=== PATIENT | female | born 1980 | race Two or more races ===

== ENCOUNTER 2021-04-07 09:30 | Emergency (ER) | payer SELFPAY ==
[~2021-04-07] VITALS: Ht 162.6 cm; Wt 75.7 kg
--- NOTE | 2021-04-07 10:29 | RAD ---
Left fourth finger 3 views. HISTORY: Pain deformity, bruising 3 views were taken of the left fourth finger. There is a small fracture at the proximal end of the di stal phalanx on the dorsal side of the left fourth finger. The fracture extends to the articular surf celina at the DIP joint. Fracture is likely an avulsion at the extensor tendon. IMPRESSION: 1. Fracture proximal end distal phalanx left fourth finger. Electronically signed by: Yao Mendoza MD (04/07/2021 10:27 AM) [id number]
--- NOTE | 2021-04-07 10:39 | ED.ADGEN ---
Past Medical History Past Medical History: No Pertinent History Past Surgical History: No Surgical History Smoking Status: Never Smoker Alcohol Use: Occasionally General Adult EDM: Chief Complaint: FINGER INJURY HPI: HPI: Patient is a 40 year old female, accompanied by her significant other, who presents emergency department with complaints of left fourth digit pain, bruising, and swelling at the DIP after a heavy box fell a plates fell on her hand 2 days ago. Patient denies any numbness, tingling, or loss of sensation of the affected hand. She states she is dominantly right-handed. She currently rates her pain 8 out of 10 on the pain scale, she denies any alleviating factors, the pain increases with palpation and movement. Review of Systems: Review of Systems: Complete ROS is negative unless otherwise noted in HPI. Allergies: Allergies: Allergies Coded Allergies Type Severity Reaction Last Updated Verified No Known Drug Allergies 04/07/21 No Physical Exam: PE: See Above Constitutional: Well developed, well nourished, no acute distress, non-toxic appearance. [] HENT: Normocephalic, atraumatic, bilateral external ears normal, nose normal. [] Eyes: PERRLA, EOMI, conjunctiva normal, no discharge. [] Neck: Normal range of motion, no stridor. [] Cardiovascular:Heart rate regular rhythm Lungs & Thorax: Respirations even and unlabored, no retractions, no respiratory distress Skin: Warm, dry, no erythema, no rash. [] Extremities: Left hand: Bruising, 1+ edema, and tenderness to palpation at the DIP, limited ROM of the DIP otherwise ROM is intact, no cyanosis, cap refill less than 2 seconds Neurologic: Alert and oriented X 3, no focal deficits noted. [] Psychologic: Affect normal, judgement normal, mood normal. [] Current Patient Data: Vital Signs: Vital Signs Date Time Temp Pulse Resp B/P (MAP) Pulse Ox O2 Delivery O2 Flow Rate FiO2 04/07/21 09:51 98.2 91 16 133/69 (90) 100 Room Air 98.2 EKG: EKG: [] Heart Score: C/O Chest Pain: No Risk Scores: Score 0 - 3: 2.5% MACE over next 6 weeks - Discharge Home Score 4 - 6: 20.3% MACE over next 6 weeks - Admit for Clinical Observation Score 7 - 10: 72.7% MACE over next 6 weeks - Early Invasive Strategies Radiology/Procedures: Radiology/Procedures: PROCEDURE: FINGER(S) LEFT Left fourth finger 3 views. HISTORY: Pain deformity, bruising 3 views were taken of the left fourth finger. There is a small fracture at the proximal end of the distal phalanx on the dorsal side of the left fourth finger. The fracture extends to the articular surface at the DIP joint. Fracture is likely an avulsion at the extensor tendon. IMPRESSION: 1. Fracture proximal end distal phalanx left fourth finger. Electronically signed by: Yao Mendoza MD (04/07/2021 10:27 AM) [id number][] Course & Med Decision Making: Course & Med Decision Making Pertinent Labs and Imaging studies reviewed. (See chart for details) 1049-I spoke with Dr. Pisano about the patient and the fracture on x-ray. I will place the patient in a short aluminum finger splint to immobilize the DIP joint only as instructed by Dr. Pisano. Will provide patient with this information for follow-up, and prescribe some pain medication to the patient. [] Dragon Disclaimer: Dragon Disclaimer: This electronic medical record was generated, in whole or in part, using a voice recognition dictation system. Departure Departure Impression: Primary Impression: Fracture, finger, distal phalanx Disposition: HOME / SELF CARE / HOMELESS Condition: STABLE Referrals: NO PCP (PCP) RICO PISANO MD Patient Instructions: Finger Fracture, [id number] Additional Instructions: Fill prescription(s) and use as directed. Recommend application of ice, elevation, and rest of affected extremity. Wear the splint that was placed until follow up appointment with Dr. Pisano, call today to schedule your appointment. Return to the ER if your symptoms worsen. Scripts Hydrocodone Bit/Acetaminophen (HYDROCODONE-APAP 5-325 ) 1 Tab Tablet 0.5-1 TAB PO PRN Q6HRS PRN for SEVERE PAIN 7-10 for 3 Days, #12 TAB 0 Refills Prov: TERRY RETANA APRN 04/07/21 Splinting Splinting : Location: 4th digit L hand Pre-Made Type: metal (short aluminum finger splint) Pre-Proc Neuro Vasc Exam: normal Post-Proc Neuro Vasc Exam: normal, unchanged from pre-exam Progress Short aluminum finger splint was applied to the fourth digit of the left hand by myself to immobilize the DIP joint, patient tolerated procedure well, reported that the finger felt better after splint application. Problem Qualifiers Primary Impression: Fracture, finger, distal phalanx Encounter type: initial encounter Finger: ring finger Fracture type: closed Fracture alignment: displaced Laterality: left Qualified Codes: S62.635A - Displaced fracture of distal phalanx of left ring finger, initial encounter for closed fracture TERRY RETANA APRN April 07, 2021 10:38
[2021-04-07] MEDS ORDERED: HYDR-2761 PO (11:50)
[2021-04-07 12:00] VITALS: BP 119/59
[2021-04-07] MEDS ORDERED: HYDROcodone/APAP 5/325MG 1 TAB TABLET PO ONE (12:00)
== END 2021-04-07 12:00 | disposition home or self-care (01) ==
LOC: ER 09:30
DX: S62.635A Displaced fracture of distal phalanx of left ring finger, initial encounter for closed fracture (principal); W20.8XXA Other cause of strike by thrown, projected or falling object, initial encounter; Y93.89 Activity, other specified; Y92.89 Other specified places as the place of occurrence of the external cause; Y99.8 Other external cause status
CPT/HCPCS: 29130; 73140; 99283